=== PATIENT | female | born 1975 | race African-American/Black ===

== ENCOUNTER 2017-06-15 23:09 | Emergency (ER) | payer OTHER ==
[2017-06-15] MEDS: IPRATRPIUM/ALBUTEROL 0.5/2.5MG 3 ML NEBU. NEB (23:46)
[2017-06-16] MEDS: predniSONE 20 MG TABLET PO (00:18)
[2017-06-16] MEDS: ACETAMINOPHEN 325 MG TABLET. PO (00:18)
[2017-06-16 00:23] LABS: INFLUENZA A PATIENT NEGATIVE (NEGATIVE); INFLUENZA B PATIENT NEGATIVE (NEGATIVE); OBC FLU VALID
== END 2017-06-16 00:27 | disposition home or self-care (01) ==
LOC: ER 23:09
DX: J20.9 Acute bronchitis, unspecified (principal); Z88.0 Allergy status to penicillin; Z88.2 Allergy status to sulfonamides; Z88.1 Allergy status to other antibiotic agents; Z88.5 Allergy status to narcotic agent
CPT/HCPCS: 87804; 87804-59; 94640; 99284; J7512; J7620